=== PATIENT | female | born 1975 | race Caucasian/White ===

== ENCOUNTER 2020-10-19 18:47 | Emergency (ER) | payer MEDICAID ==
[~2020-10-19] VITALS: Ht 167.6 cm; Wt 118.6 kg
[~2020-10-19 18:47] MED LIST: HYDR-3240 PO; ONDA4TAB7 PO
[2020-10-19 19:20] VITALS: BP 184/117
--- NOTE | 2020-10-19 19:27 | NUR ---
PA HAD CONVERSATION WITH PATIENT IN TRIAGE ABOUT BLOOD PRESSURE, PATIENT DOES NOT WISH TO HAVE WORK UP FOR HIGH BLOOD PRESSURE, PATIENT STATES "I JUST NEED TO CALL MY DOC AND GET A SCRIPT. I JUST WANT TO TAKE CARE OF THE EAR INFECTION". THIS RN AND MARGARITA WHITNEY DISCUSSED RISKS AND POTENTIAL OUTCOMES OF HIGH BLOOD PRESSURE, PATIENT ACKNOWLEDGES AND VERBALIZES UNDERSTANDING.
--- NOTE | 2020-10-19 20:46 | NUR ---
DC FROM TRIAGE.
== END 2020-10-19 20:48 ==
LOC: ED 19:50
DX: H60.502 Unspecified acute noninfective otitis externa, left ear (principal); I10 Essential (primary) hypertension; R00.0 Tachycardia, unspecified
CPT/HCPCS: 93005; 99283